=== PATIENT | male | born 1990 | race Two or more races ===

== ENCOUNTER 2024-06-17 14:24 | Emergency (ER) | payer BC, SELFPAY ==
[2024-06-17 14:28] VITALS: BP 128/85; PULSE 81; RESP 14; TEMP 36.9; O2SAT 97; BMI 32.9
--- NOTE | 2024-06-17 17:20 | ED.GENADULT ---
HPI - General Adult General Chief complaint: Neuro Symptoms/Altered Deficit Stated complaint: Neuro symptoms-invol movements, tingly limbs Time Seen by Provider: 06/17/24 16:36 History of Present Illness HPI narrative: This 34-year-old male comes in after calling the nurse line who recommended that he come in for evaluation. He has a long history of depression and anxiety and has been taking sertraline for about 8 years and this seems to help him. However there have been some experiments with other medications to get more benefit for treatment of anxiety and depression. He was on BuSpar about a month ago and took it for a couple weeks but discontinued this because of adverse effects. He also tried Lamictal last week and took it for 2 days but had insomnia and undesirable adverse effects with that medicine also. He comes in today stating that he has feeling of tingling and anxiety along with some tremors or jerks that were involuntary and he uses the word akathesia to described these symptoms. While he was sitting in the waiting room his symptoms significantly resolved. Related Data Previous Rx's ?Medication ?Instructions ?Recorded propranolol 10 mg tablet 10 mg PO BID PRN #20 tabs 06/17/24 Review of Systems Status of ROS: Reports: 10 or more systems reviewed and unremarkable except as noted in History and below Narrative: Constitutional: No fevers, no weight gain or loss. Eyes: No discharge. No vision changes. HENT: No congestion, no sore throat, no ear pain. Cardiovascular: No chest pain, no palpitations. Respiratory: No shortness of breath, no wheezes, no cough. Gastrointestinal: No abdominal pain, no vomiting, no diarrhea. Genitourinary: No dysuria, no hematuria. Musculoskeletal: Normal range of motion. Skin: No rashes, no pruritis. Neurological: No dizziness, weakness, sensory change, speech change. Endo/Heme/Allergies: No bruising or bleeding. No polydipsia. Pysch: no suicidality. He does report anxiety and depression symptoms that are ongoing. All other systems reviewed and are negative. PFSH PFSH Social History Do you use any of these nicotine containing products: None How often do you have a drink containing alcohol: never AUDIT-C Alcohol total score: 0 Non-prescribed substance use: denies use Exam Narrative: Exam Narrative: Constitutional: Well-developed, well-nourished, no acute distress. HEENT: Normocephalic, atraumatic. Neck: Normal range of motion. Nontender. Supple. Heart: Regular. No murmurs. Normal rate. Intact distal pulses. Lungs: Clear to auscultation. No chest discomfort. No wheezes, rhonchi, or rales. Abdomen: Normal bowel sounds. Nontender. No rebound tenderness. Genitalia: Deferred. Back: No midline tenderness. Normal range of motion. Extremities: Normal range of motion. No injury. Skin: Intact. No rash. Warm. No erythema or pallor. Neurologic: No altered sensation. No weakness. Alert and oriented. No facial asymmetry. Tongue is midline. [id number] is normal. No pronator drift. Research Assistant Professor strength is equal bilaterally. Able to raise each leg from the bed. Psychiatric: No suicidality. Nursing notes and vitals signs are reviewed. Const: Vital Signs, click to edit/add: Vital Signs - 24 hr 06/17/24 14:28 Temperature 98.4 F Pulse Rate [Right Radial] 81 Respiratory Rate 14 Blood Pressure [Le ft Upper Arm] 128/85 Pulse Oximetry 97 Oxygen Delivery Me thod Room Air Course Vital Signs Vital signs: Initial Vital Signs Temperature 98.4 F 06/17/24 14:28 Temperature Source Temporal Artery Scan 06/17/24 14:28 Pulse Rate 81 06/17/24 14:28 Pulse Rhythm Regular 06/17/24 14:28 Respiratory Rate 14 06/17/24 14:28 Blood Pressure 128/85 06/17/24 14:28 Blood Pressure Mean 99 06/17/24 14:28 Pulse Oximetry 97 06/17/24 14:28 Oxygen Delivery Method Room Air 06/17/24 14:28 Vital Signs Temperature 98.4 F 06/17/24 14:28 Pulse Rate 81 06/17/24 14:28 Respiratory Rate 14 06/17/24 14:28 Blood Pressure 128/85 06/17/24 14:28 Pulse Oximetry 97 06/17/24 14:28 Oxygen Delivery Method Room Air 06/17/24 14:28 Temperature 98.4 F 06/17/24 14:28 Pulse Rate 81 06/17/24 14:28 Respiratory Rate 14 06/17/24 14:28 Blood Pressure 128/85 06/17/24 14:28 Pulse Oximetry 97 06/17/24 14:28 Oxygen Delivery Method Room Air 06/17/24 14:28 Medical Decision Making MDM Narrative Medical decision making narrative: This patient comes in to rule out some kind of neurologic deficits that per recommendation of a phone nurse. He does have a completely normal neurologic exam. There is no sign of neurologic deficit. He is feeling better with regard to some adverse effects that are likely related to medications that he took recently. He is reassured that these symptoms have seemed to resolve now. He states that he does have Xanax at home that he can take occasionally if needed for such symptoms. I did discuss lab and imaging options with the patient and these were declined in a process of shared decision making. He is reassured with his neurologic exam being completely normal. He also states that he is feeling significantly better. I did provide a prescription for propranolol which may be bring some additional relief and to anxiety symptoms. Discharge Plan Discharge Clinical Impression: Anxiety, Adverse drug effect Patient Disposition: Home, Self-Care Condition: Improved Additional Instructions: Continue current medications. Use propranolol as needed and directed. Follow up with primary physicians for ongoing management. Return if worsening. Prescriptions: New propranolol 10 mg tablet 10 mg PO BID PRNQty: 20 0RF Stand Alone Forms: [employer] Instructions
[2024-06-17 17:43] VITALS: BP 139/88; PULSE 88; RESP 20
== END 2024-06-17 17:44 | disposition home or self-care (01) ==
PROVIDERS: Emergency Provider Emergency Medicine Emergency Medical Services
DX: F41.9 Anxiety disorder, unspecified (principal); T50.905A Adverse effect of unspecified drugs, medicaments and biological substances, initial encounter
CPT/HCPCS: 99283; 99284

== ENCOUNTER 2024-08-24 08:50 | Emergency (ER) | payer BC, SELFPAY ==
[2024-08-24 08:57] VITALS: BP 132/85; PULSE 93; RESP 18; TEMP 36.3; O2SAT 98; BMI 32.1
--- NOTE | 2024-08-24 09:11 | ED_ITS ---
HPI - General Adult General Chief complaint: Unspecified Complaint, Adult Stated complaint: Mental health Time Seen by Provider: 08/24/24 08:52 History of Present Illness HPI narrative: Pt presents with concerns of medication interactions. Has been on sertraline for 8 years and was recently prescribed Tegretol in June. Pt was told by psychiatrist that these medications shouldn't cause adverse effects together, pt did his own research and believes these medications do interact. Says he does not want to stop the sertraline cold turkey. Has since stopped seeing this psychiatrist and is concerned on how to move forward with these medications. Pt states no thoughts of suicide. 34 year old man presenting to the emergency department with concern of potential medication interactions. Has been on sertraline for many years which did help him historically with anxiety. Due to poor sleep was initiated on carbamazepine 2 months ago with concern of potential mood disorder. Admittedly sleep has been good but he takes Seroquel as well for that also started about the same time in June. He has consulted with the pharmacist who suggested that the carbamazepine was bad medication with numerous interactions as well as consulting a psychiatrist through a friend on the side. He has had increased levels of anxiety now over this last week but also describes of flattening of affect or dulled emotions otherwise. He did bring this up with a psychiatrist who feels that any interaction would not be statistically significant between sertraline and carbamazepine. Primary care provider he reports apparently feeling not qualified to make medication changes. No SI or HI. He is accompanied by appropriately attentive partner I believe. Related Data Home Medications ?Medication ?Instructions ?Recorded ?Confirmed carbamazepine 200 mg tablet 200 mg PO BID 08/24/24 08/24/24 (Epitol) quetiapine 100 mg tablet 100 - 300 mg PO QPM PRN insomnia 08/24/24 08/24/24 sertraline 50 mg tablet 50 mg PO DAILY depressive disorder 08/24/24 08/24/24 Previous Rx's ?Medication ?Instructions ?Recorded propranolol 10 mg tablet 10 mg PO BID PRN #20 tabs 06/17/24 Allergies Allergy/AdvReac Type Severity Reaction Status Date / Time No Known Drug Allergies Allergy Verified 08/24/24 09:07 Review of Systems Status of ROS: Reports: 6 or more systems reviewed and unremarkable except as noted in History and below PFSH PFSH Social History Smoking Status: Never smoker Do you use any of these nicotine containing products: None How often do you have a drink containing alcohol: never How often do you have six or more drinks on one occasion: Never AUDIT-C Alcohol total score: 0 Non-prescribed substance use: denies use Exam Narrative: Exam Narrative: Very pleasant. NAD. Calm. Thoughtful. Very polite, deferential. Speech isn't pressured or slurred. Carefully casually groomed. Const: Vital Signs, click to edit/add: Vital Signs - 24 hr 08/24/24 08:57 Temperature 97.3 F L Pulse Rate [Right Pulse Oximeter] 93 Respiratory Rate 18 Blood Pressure [Ri ght Upper Arm] 132/85 Pulse Oximetry 98 Oxygen Delivery Me thod Room Air Documenting provider has reviewed patient's vital signs: yes Course Vital Signs Vital signs: Initial Vital Signs Temperature 97.3 F L 08/24/24 08:57 Temperature Source Temporal Artery Scan 08/24/24 08:57 Pulse Rate 93 08/24/24 08:57 Pulse Rhythm Regular 08/24/24 08:57 Respiratory Rate 18 08/24/24 08:57 Blood Pressure 132/85 08/24/24 08:57 Blood Pressure Mean 100 08/24/24 08:57 Blood Pressure Position Sitting 08/24/24 08:57 Pulse Oximetry 98 08/24/24 08:57 Oxygen Delivery Method Room Air 08/24/24 08:57 Vital Signs Temperature 97.3 F L 08/24/24 08:57 Pulse Rate 93 08/24/24 08:57 Respiratory Rate 18 08/24/24 08:57 Blood Pressure 132/85 08/24/24 08:57 Pulse Oximetry 98 08/24/24 08:57 Oxygen Delivery Method Room Air 08/24/24 08:57 Temperature 97.3 F L 08/24/24 08:57 Pulse Rate 93 08/24/24 08:57 Respiratory Rate 18 08/24/24 08:57 Blood Pressure 132/85 08/24/24 08:57 Pulse Oximetry 98 08/24/24 08:57 Oxygen Delivery Method Room Air 08/24/24 08:57 Medical Decision Making MDM Narrative Medical decision making narrative: Can certainly consult with pharmacy and see if per request levels of sertraline are available though I do not understand what the value of this would necessarily be given different effect in different persons. Does not report any history of liver or renal problems. No levels of course have been checked of carbamazepine. Did review literature and discuss with pharmacy. Interaction potential noted of sertraline and quetiapine with regard to QT prolongation. Also some concern of interaction between carbamazepine quetiapine where c arbamazepine may have effect increased and quetiapine may have decreased effectivity. Quetiapine appears to be working however with regard to sleep. Did propose EKG. Results as below. Reassuring with normal QT/QTc. Also consulted with pharmacy per Mr. Aviles request. Inquiry for whether not sertraline level labs would be available. These are available but would not consider this something that would want to check in the emergency department. Can be followed up outpatient. Would likely also be an out of pocket expense Given his concerns will try to obtain sooner than later psychiatric appointment for medication management. Mr. Aviles would appreciate this. Have managed to obtain of visit in 2 days time. See patient discharge plan for further discussion. Medical Records Medical records reviewed: Yes I reviewed the patient's medical records ECG Data Attestation: I personally reviewed and interpreted this ECG as follows: (Normal sinus rhythm at 64. QT 390, QTc 402) Discharge Plan Discharge Clinical Impression: Medication management Additional Instructions: Was a pleasure talking with you today. Please take copies of information related to medication interaction as per dayami and a copy of your EKG. If you choose to get a sertraline level done, [employer] offers a test # [id number] or [id number]? Would need to verify. I would check also with your insurance company as to coverage. We have scheduled you a follow-up for medication management as below. I would also reach out to your psychiatrist and/or primary care provider to schedule a [id number] visit for further cares. Follow up appointment is scheduled with [facility] on 08/26 at 10am. You will receive a call from Todd Hunt (Psychiatrist) regarding your appointment. [facility] [address] [place] [address] Prescriptions: No Action quetiapine 100 mg tablet 100 - 300 mg PO QPM PRN (Reason: insomnia) sertraline 50 mg tablet 50 mg PO DAILY carbamazepine [Epitol] 200 mg tablet 200 mg PO BID propranolol 10 mg tablet 10 mg PO BID PRNQty: 20 0RF Follow Up/Referrals: Provider,Not a Local [Non-Staff] - Stand Alone Forms: [employer] Instructions
== END 2024-08-24 11:59 | disposition home or self-care (01) ==
PROVIDERS: Emergency Provider Family Medicine; PCP Student in an Organized Health Care Education/Training Program
DX: Z51.81 Encounter for therapeutic drug level monitoring (principal)
CPT/HCPCS: 93005; 99283; 99284